=== PATIENT | female | born 1955 | race Caucasian/White ===

== ENCOUNTER → 2016-11-04 | Outpatient (CLI) | payer OTHER ==
[~2016-11-04] MED LIST: ANTIVERT PO; ASPIRIN325 M1 PO; ASPIRIN81 M1; ASPIRIN81 M2 PO; ATIVAN0.5 MG PO; CELEXA; COLACE PO; GLYCOPYRROLATE; GLYCOPYRROLATE2 MG PO; IMITREX6 MG/0.5 M SQ; INDERAL20 MG PO; LEVAQUIN PO; LINZESS290 MCG PO; LOMOTIL WHITE2.5 M1 PO; LYRICA PO; MACRODANTIN PO; MAGNESIUM500 MG PO; MIRALAX17 GM; NAPROXEN PO; NEXIUM; NEXIUM PO; OMEPRAZOLE40 M1 PO; PAXIL PO; PROPRANOLOL HCL40 M1 PO; PROPRANOLOL PO; ROBINUL FORTE2 MG PO; SYMBYAX 6-251 UDCAP PO; TRAMADOL HCL50 M2 PO; VICODIN; VICODIN PO; VIIBRYD40 MG PO; VITAMIN D2400 UNIT PO; [UNRECOGNIZED DRUG - OTHER]
--- NOTE | ~2016-11-04 | CR242 ---
[facility] A Service of [facility] & [facility] RADIOLOGY TEXT RESULTS PATIENT: CORNELIO BIRMINGHAM LOCATION: [facility] : 53 UNIT #: [id number] AGE: [address]: DAVID HADDAD MD SEX: F ORDER DR: [id number] [address] [address] [id number] O MR#: [id number] Acc #: [id number] NAME: CORNELIO BIRMINGHAM : 1955 SEX: F STUDY DATE/TIME: 11/04/2016 13:28 UNIT: [facility] ROOM: STUDY DESCRIPTION: CR Thoracic Spine 2 Views Attending Physician: David Haddad M.D. Referring Physician: David Haddad M.D. Ordering Physician: Staff Doctor Not On Primary Care Physician: Sánchez Grady M.D. MEDICAL IMAGING REPORT This report is preliminary unless electronic signature is present. EXAM Thoracic series 11/04/2016 INDICATION 61-year-old female with pain in the mid thoracic spine for 2 years. No known injury. Mid and upper back pain. Clinical concern for possible fracture. Hypertension, migraine headache history. TECHNIQUE 3 views of the thoracic spine were performed. No comparisons. Correlation is made with thoracic MRI 05/28/2016 FINDINGS Cervicothoracic junction intact. There is degenerative change in the lower cervical and upper thoracic spine related to degenerative disc disease. The bones are osteopenic. No acute fracture or malalignment. There is also degenerative disc disease in the tpx-[id number]-ejake thoracic levels. Minimal levoscoliosis at the thoracolumbar junction. IMPRESSION 1. Osteopenia with degenerative changes but no acute fracture or malalignment. Dictated by... Howard Contreras M.D. THIS IS AN ELECTRONICALLY VERIFIED REPORT Howard Contreras M.D. at 11/05/2016 7:35 AM KELSIE/suleiman TD: 11/04/2016 19:10 JOB #: [id number] [facility] A Service of [facility] & [facility] RADIOLOGY TEXT RESULTS PATIENT: CORNELIO BIRMINGHAM LOCATION: [facility] : 53 UNIT #: [id number] AGE: [address]: DAVID HADDAD MD SEX: F ORDER DR: MEDICAL IMAGING REPORT Page 1 of 1
== END | disposition home or self-care (01) ==
LOC: SRAD 13:19
DX: M54.2 Cervicalgia (principal); M85.88 Other specified disorders of bone density and structure, other site; M47.814 Spondylosis without myelopathy or radiculopathy, thoracic region
CPT/HCPCS: 72070

== ENCOUNTER → 2017-02-22 | Outpatient (CLI) | payer MEDICARE, OTHER ==
--- NOTE | ~2017-02-22 | CT57 ---
[facility] A Service of [facility] RADIOLOGY TEXT RESULTS PATIENT: CORNELIO BIRMINGHAM LOCATION: [facility] : 53 UNIT #: [id number] AGE: [address]: Troy Moss SEX: F ORDER DR: [id number] [place] [id number] O MR#: [id number] Acc #: [id number] NAME: CORNELIO BIRMINGHAM : 1955 SEX: F STUDY DATE/TIME: 02/22/2017 12:23 UNIT: [facility] ROOM: STUDY DESCRIPTION: CT Chest Wo Cont Attending Physician: Troy Moss M.D. Referring Physician: Troy Moss M.D. Ordering Physician: Troy Moss M.D. Primary Care Physician: Sánchez Grady M.D. MEDICAL IMAGING REPORT This report is preliminary unless electronic signature is present. EXAM CT chest INDICATION Pulmonary nodule. Abnormal chest radiograph. Restaging. TECHNIQUE CT of the thorax without contrast. Coronal and sagittal reconstructions were obtained. This CT exam was performed with one or more of the following radiation dose reduction techniques: automatic exposure control, adjustment of mA and/or kV according to patient size, and iterative reconstruction. COMPARISON CT thorax 12/05/2015 and 11/23/2014 FINDINGS There are a few small pulmonary nodules measuring less than 2-3 mm in the left lung. These are all unchanged from at least 11/23/2014 indicative of benign granulomas. No suspicious or new pulmonary nodules. There is a benign calcified granuloma in the right middle lobe. Central airways are patent. No pathologically enlarged mediastinal or hilar lymph nodes. Thoracic aorta is normal in caliber. No pericardial or pleural effusion. Thoracic aorta is normal in size. No acute osseous abnormalities. IMPRESSION No suspicious pulmonary findings. A few small pulmonary nodules in the left lung are unchanged from at least 11/23/2014 indicative of benign granulomas. [facility] A Service of [facility] RADIOLOGY TEXT RESULTS PATIENT: CORNELIO BIRMINGHAM LOCATION: [facility] : 53 UNIT #: [id number] AGE: [address]: Troy Moss SEX: F ORDER DR: Dictated by... Zachary Jones M.D. THIS IS AN ELECTRONICALLY VERIFIED REPORT Zachary Jones M.D. at 02/23/2017 9:14 AM LO/renée TD: 02/23/2017 04:21 JOB #: [id number] MEDICAL IMAGING REPORT Page 1 of 1
== END | disposition home or self-care (01) ==
LOC: SCT 12:05
DX: R91.8 Other nonspecific abnormal finding of lung field (principal)
CPT/HCPCS: 71250